=== PATIENT | male | born 1935 | race Caucasian/White ===

== ENCOUNTER → 2022-02-04 | Outpatient (CLI) | payer MEDICARE ==
[~2022-02-04] MED LIST: ASPI-1443 PO; IOHEXOL 350 MG/ML 100ML INFUS..BTL IV ONE; LEVO112T7 PO; MULT-1203 PO; ROSU5TAB PO
[2022-02-04 08:22] LABS: CREATININE 1.4 mg/dL (0.5-1.5)
== END | disposition home or self-care (01) ==
LOC: RAH 07:31
PROVIDERS: ATTEND Internal Medicine Cardiovascular Disease
DX: I71.40 Abdominal aortic aneurysm, without rupture, unspecified (principal); Z95.820 Peripheral vascular angioplasty status with implants and grafts; E27.9 Disorder of adrenal gland, unspecified; Z85.51 Personal history of malignant neoplasm of bladder
CPT/HCPCS: 74174; 82565; 36415; Q9967

== ENCOUNTER → 2022-08-02 | Outpatient (CLI) | payer MEDICARE ==
[~2022-08-02] MED LIST changes: +FAMO40TA7 PO; -IOHEXOL 350 MG/ML 100ML INFUS..BTL IV ONE; +OMEP20CA12 PO
== END | disposition home or self-care (01) ==
LOC: SHCH 07:34
PROVIDERS: ATTEND Internal Medicine Cardiovascular Disease
DX: I71.40 Abdominal aortic aneurysm, without rupture, unspecified (principal); Z95.828 Presence of other vascular implants and grafts
CPT/HCPCS: 93978

== ENCOUNTER 2023-06-01 15:50 | Observation (INO) | payer MEDICARE ==
[~2023-06-01] VITALS: Ht 180.3 cm; Wt 81.6 kg
[2023-06-01 16:25] LABS: BASOPHILS # (AUTO) 0.04 K/uL (0.00-0.20); BASOPHILS % (AUTO) 0.3 % (0.0-5.0); EOSINOPHILS # (AUTO) 0.06 K/uL (0.00-0.70); EOSINOPHILS % (AUTO) 0.5 % (0.0-8.0); HEMATOCRIT 42.5 % (42-54); IMMATURE GRANULOCYTE ABSOLUTE 0.05 K/uL (0-1); LYMPHOCYTES # (AUTO) 0.8 K/uL (1.0-4.8); LYMPHOCYTES % (AUTO) 6.4 % (21.0-51.0); MEAN CORPUSCULAR HEMOGLOBIN 29.2 pg (27.0-33.0); MEAN CORPUSCULAR HGB CONC 32.7 g/dL (32.0-36.0); MEAN CORPUSCULAR VOLUME 89.3 fL (79-99); MONOCYTES # (AUTO) 1.8 K/uL (0.1-1.0); MONOCYTES % (AUTO) 14.4 % (3.0-13.0); NEUTROPHILS # (AUTO) 9.7 K/uL (1.8-7.7); PLATELET COUNT (AUTO) 146 K/uL (130-400); RED BLOOD CELL COUNT(AUTO) 4.76 MIL/uL (4.50-6.20); RED CELL DISTRIBUTION WIDTH 14.7 % (11.0-15.5); WHITE BLOOD COUNT (AUTO) 12.4 K/uL (4.8-10.8)
[2023-06-01 16:35] LABS: CREATININE 1.4 mg/dL (0.5-1.5)
[2023-06-01 16:39] LABS: ALBUMIN 3.8 g/dL (3.5-5.0); BILIRUBIN,TOTAL 1.8 mg/dL (0.2-1.0); TOTAL PROTEIN, SERUM 6.2 g/dL (6.0-8.3)
[2023-06-01 18:55] LABS: APPEARANCE,URINE CLEAR (CLEAR); BILIRUBIN,URINE NEGATIVE (NEGATIVE); COLOR,URINE YELLOW (YELLOW); GLUCOSE, URINE (UA) NEGATIVE (NEGATIVE); KETONES,URINE 5 mg/dL (NEGATIVE); LEUKOCYTE ESTERASE ,URINE NEGATIVE Leu/uL (NEGATIVE); NITRATE,URINE NEGATIVE (NEGATIVE); OCCULT BLOOD,URINE NEGATIVE (NEGATIVE); PROTEIN,URINE 30 mg/dL (NEGATIVE); UROBILINOGEN,URINE 0.2 mg/dL (0.2-1.0)
[2023-06-01 18:57] LABS: ADD UA MICROSCOPIC YES
[2023-06-01 18:59] LABS: BACTERIA,URINE MOD /HPF (None Seen); MUCUS,URINE FEW LPF (None Seen)
[2023-06-01] MEDS: METOPROLOL TARTRATE 1 MG/ML 5ML VIAL IV ONE (20:13)
[2023-06-01] MEDS ORDERED: MORPHINE 4 MG SYG IV PRN (21:30)
[2023-06-01] MEDS ORDERED: HYDROCODONE/ACETAMINOPHEN 5/325 MG TAB PO PRN (21:30)
[2023-06-01] MEDS ORDERED: ACETAMINOPHEN 325 MG TAB PO PRN ×2 (21:30)
[2023-06-01] MEDS ORDERED: ONDANSETRON 4MG INJ IV PRN (21:30)
[2023-06-01] MEDS: CEFTRIAXONE 1G VIAL IVPB ONE (22:54)
[2023-06-01] MEDS: LACTULOSE 20 GM/30 ML UDCUP PO ONE (22:54)
[2023-06-01] MEDS: LACTATED RINGERS 1000ML 1,000 ML IV SCH (22:55)
[2023-06-02 07:35] LABS: BASOPHILS # (AUTO) 0.04 K/uL (0.00-0.20); BASOPHILS % (AUTO) 0.3 % (0.0-5.0); EOSINOPHILS # (AUTO) 0.01 K/uL (0.00-0.70); EOSINOPHILS % (AUTO) 0.1 % (0.0-8.0); HEMATOCRIT 39.4 % (42-54); IMMATURE GRANULOCYTE ABSOLUTE 0.08 K/uL (0-1); LYMPHOCYTES # (AUTO) 1.2 K/uL (1.0-4.8); LYMPHOCYTES % (AUTO) 8.6 % (21.0-51.0); MEAN CORPUSCULAR HEMOGLOBIN 29.3 pg (27.0-33.0); MEAN CORPUSCULAR VOLUME 88.7 fL (79-99); MONOCYTES # (AUTO) 2.7 K/uL (0.1-1.0); MONOCYTES % (AUTO) 19.6 % (3.0-13.0); NEUTROPHILS # (AUTO) 9.7 K/uL (1.8-7.7); NEUTROPHILS % (AUTO) 70.8 % (40.0-77.0); PLATELET COUNT (AUTO) 140 K/uL (130-400); RED BLOOD CELL COUNT(AUTO) 4.44 MIL/uL (4.50-6.20); RED CELL DISTRIBUTION WIDTH 14.8 % (11.0-15.5); WHITE BLOOD COUNT (AUTO) 13.7 K/uL (4.8-10.8)
[2023-06-02 08:00] VITALS: BP 147/69; PULSE 108; RESP 19; O2SAT 97
[2023-06-02 08:07] LABS: CREATININE 1.4 mg/dL (0.5-1.5); MAGNESIUM 2.2 mg/dL (1.80-2.40); PHOSPHORUS 3.3 mg/dL (2.5-4.9); POTASSIUM 4.9 mmol/L (3.5-5.1); THYROID STIMULATING HORMONE 3.18 uIU/mL (0.36-3.74)
[2023-06-02] MEDS: LACTULOSE 20 GM/30 ML UDCUP PO SCH (09:00)
[2023-06-02] MEDS: ENOXAPARIN SODIUM 40 MG/0.4 ML SYRINGE SQ SCH (09:00)
[2023-06-02] MEDS: FAMOTIDINE 20MG TAB PO SCH (09:30)
[2023-06-02 12:00] VITALS: BP 110/71; PULSE 91; RESP 17
[2023-06-02] MEDS: CEFTRIAXONE 1G VIAL IVPB SCH (12:10)
== END 2023-06-02 13:00 | disposition home or self-care (01) ==
LOC: EDH 15:50 → EDHIP 21:19 → INTOOBSV 21:19 → EDHIP 06-02 13:00
PROVIDERS: ADMIT Internal Medicine; ATTEND Internal Medicine
DX: K59.00 Constipation, unspecified (principal); R10.13 Epigastric pain; R41.81 Age-related cognitive decline; E78.2 Mixed hyperlipidemia; E03.9 Hypothyroidism, unspecified; I48.91 Unspecified atrial fibrillation; K40.90 Unilateral inguinal hernia, without obstruction or gangrene, not specified as recurrent; K57.30 Diverticulosis of large intestine without perforation or abscess without bleeding; I10 Essential (primary) hypertension; K21.9 Gastro-esophageal reflux disease without esophagitis; Z88.5 Allergy status to narcotic agent; Z91.041 Radiographic dye allergy status; Z79.82 Long term (current) use of aspirin; Z87.891 Personal history of nicotine dependence; Z85.51 Personal history of malignant neoplasm of bladder
CPT/HCPCS: 96374; 96361 ×2; 96375; 99285; 84484; 80053; 83690; 85025 ×2; 87040 ×2; 87088; 81001; 36415 ×2; 71045; 74176; 93005; 84145; 96376; 84443; 83735; 84100; 80048; J7120; J3490; J0696 ×2; G0378 ×3

== ENCOUNTER → 2023-08-23 | Outpatient (CLI) | payer MEDICARE | END | disposition home or self-care (01) | LOC: SHCH 08:31 | PROVIDERS: ATTEND Internal Medicine Cardiovascular Disease | DX: I71.40 Abdominal aortic aneurysm, without rupture, unspecified (principal) | CPT/HCPCS: 93978 ==

== ENCOUNTER → 2023-11-28 | Outpatient (CLI) | payer MEDICARE ==
[2023-11-28 12:09] LABS: BASOPHILS # (AUTO) 0.04 K/uL (0.00-0.20); BASOPHILS % (AUTO) 0.5 % (0.0-5.0); EOSINOPHILS # (AUTO) 0.09 K/uL (0.00-0.70); EOSINOPHILS % (AUTO) 1.1 % (0.0-8.0); HEMATOCRIT 45.8 % (42-54); IMMATURE GRANULOCYTE ABSOLUTE 0.06 K/uL (0-1); LYMPHOCYTES # (AUTO) 0.9 K/uL (1.0-4.8); LYMPHOCYTES % (AUTO) 10.8 % (21.0-51.0); MEAN CORPUSCULAR HGB CONC 30.6 g/dL (32.0-36.0); MEAN CORPUSCULAR VOLUME 91.6 fL (79-99); MONOCYTES % (AUTO) 11.4 % (3.0-13.0); NEUTROPHILS # (AUTO) 6.3 K/uL (1.8-7.7); NEUTROPHILS % (AUTO) 75.5 % (40.0-77.0); PLATELET COUNT (AUTO) 262 K/uL (130-400); RED CELL DISTRIBUTION WIDTH 15.3 % (11.0-15.5); WHITE BLOOD COUNT (AUTO) 8.4 K/uL (4.8-10.8)
[2023-11-28 12:42] LABS: ALBUMIN 3.8 g/dL (3.5-5.0); BILIRUBIN,TOTAL 1.2 mg/dL (0.2-1.0); CREATININE 1.4 mg/dL (0.5-1.3); POTASSIUM 4.7 mmol/L (3.5-5.1); T4 (THYROXINE) 5.3 ug/dL (4.7-13.3); THYROID STIMULATING HORMONE 24.47 uIU/mL (0.36-3.74)
== END | disposition home or self-care (01) ==
LOC: LAB 10:18
PROVIDERS: ATTEND Internal Medicine Cardiovascular Disease
DX: I10 Essential (primary) hypertension (principal)
CPT/HCPCS: 36415; 80053; 84436; 84443; 84479; 85025